=== PATIENT | male | born 1955 | race Caucasian/White ===

== ENCOUNTER 2017-12-10 09:55 | Emergency (ER) | payer OTHER ==
--- NOTE | 2017-12-10 10:19 | EDM.PDOC ---
ED HPI GENERAL MEDICAL PROBLEM - General Chief Complaint: Respiratory Problem Stated Complaint: [id number] UPPER RESP SENT BY DR COLE Time Seen by Provider: 12/10/17 10:18 Source of Information: Reports: Patient, Family (), Old Records, RN, RN Notes Reviewed History Limitations: Reports: No Limitations - History of Present Illness INITIAL COMMENTS - FREE TEXT/NARRATIVE: Arrives from home by POV with c/o 1 weeks duration of shortness of breath and cough. Initial pt states the cough was dry, but has become productive with clear -yellowish sputum, and this morning the sputum was bloody. Denies chest pain, but admits to some chest pressure & burning with cough only. Denies fever or chills. He has 3+ pitting edema to the B/L lower extremities, but states that is chronic, stable and unchanged for years. Denies calf pain. Onset: Gradual Duration: Week(s): (1) Location: Reports: Chest Severity: Severe Improves with: Reports: None Worsens with: Reports: None Associated Symptoms: Reports: No Other Symptoms Abdomen Pain Score (Numeric/FACES): 4 - Related Data Allergies Allergy/AdvReac Type Severity Reaction Status Date / Time atorvastatin calcium Allergy Muscle Verified 12/10/17 10:18 [From Lipitor] Aches cefadroxil hydrate Allergy Diarrhea Verified 12/10/17 10:18 [From Duricef] cerivastatin sodium Allergy Muscle Verified 12/10/17 10:18 [From Baycol] Aches pravastatin sodium Allergy Muscle Verified 12/10/17 10:18 [From Pravachol] Aches calcium containing compounds Allergy Cannot Uncoded 12/10/17 10:18 Remember Home Meds: Home Meds Ezetimibe [Zetia] 10 mg PO DAILY 02/19/14 [History] Folic Acid 2,000 mcg PO DAILY 02/19/14 [History] Levothyroxine Sodium [Synthroid] 75 mcg PO ACBRK 02/19/14 [History] Metoprolol Succinate [Toprol XL] 200 mg PO DAILY 02/19/14 [History] Sildenafil [Viagra] 50 mg PO BID PRN 02/19/14 [History] amLODIPine [Norvasc] 10 mg PO BEDTIME 02/19/14 [History] atorvaSTATin [Lipitor] 20 mg PO BEDTIME 02/19/14 [History] azaTHIOprine [Imuran] 100 mg PO BID 02/19/14 [History] sulfaSALAzine [Sulfazine] 1,500 mg PO TID 02/19/14 [History] Aspirin [Halfprin] 81 mg PO DAILY 08/25/15 [History] metFORMIN [Glucophage XR] 500 mg PO BID 08/25/15 [History] Multivitamin [Daily Multiple Vitamin] 1 tab PO DAILY 09/02/15 [History] Doxycycline [Doxycycline Monohydrate] 100 mg PO BID 12/10/17 [History] Insulin Glarg,Human.Rec.Analog [Lantus Solostar] 28 unit SUBCUT DAILY 12/10/17 [ History] Losartan [Cozaar] 100 mg PO DAILY 12/10/17 [History] Past Medical History HEENT History: Reports: Impaired Vision Cardiovascular History: Reports: High Cholesterol, Hypertension Other Cardiovascular History: HYPERLIPIDEMIA Respiratory History: Reports: None Gastrointestinal History: Reports: Inflammatory Bowel Disease Other Gastrointestinal History: ULCERATIVE COLITIS Musculoskeletal History: Reports: Other (See Below) (chronic peripheral edema) Endocrine/Metabolic History: Reports: Diabetes, Type II, Obesity/BMI 30+ Other Endocrine/Metabolic History: HASHIMOTOTHYROIDITIS Oncologic (Cancer) History: Reports: Malignant Melanoma Other Dermatologic History: DRY SKIN - Past Surgical History Other Male Surgeries/Procedures: CYSTOSCOPY Social & Family History - Family History Family Medical History: Noncontributory - Tobacco Use Smoking Status *Q: Never Smoker - Alcohol Use Days Per Week of Alcohol Use: 1 Number of Drinks Per Day: 2 Total Drinks Per Week: 2 - Recreational Drug Use Recreational Drug Use: No Drug Use in Last 12 Months: No Recreational Drug Type: - Living Situation & Occupation Living situation: Reports: , with Spouse Occupation: Employed ED ROS GENERAL - Review of Systems Review Of Systems: ROS reveals no pertinent complaints other than HPI. ED EXAM, GENERAL - Physical Exam Exam: See Below Exam Limited By: No Limitations General Appearance: Alert, Mild Distress, Obese Eye Exam: Bilateral Eye: Normal Inspection Ears: Normal External Exam, Hearing Grossly Normal Nose: Normal Inspection Throat/Mouth: Normal Lips, Normal Voice, No Airway Compromise Head: Atraumatic, Normocephalic Neck: Normal Inspection, Non-Tender, Full Range of Motion Respiratory/Chest: No Accessory Muscle Use, Chest Non-Tender, Decreased Breath Sounds, Crackles, Rales, Wheezing Cardiovascular: Regular Rate, Rhythm, Tachycardia, Other (3+ pitting edema to B/ L distal thighs, chronic/stable per pt) GI/Abdominal: Normal Bowel Sounds, Soft, Non-Tender, No Distention, Other ( benign morbidly obese abdomen). No: Guarding, Rigid, Rebound (Male) Exam: Deferred Rectal (Males) Exam: Deferred Back Exam: Full Range of Motion, Other (surgical wound left upper back, dressing not removed for exam, no regional tenderness or erythema). No: CVA Tenderness (L), CVA Tenderness (R) Extremities: Normal Range of Motion, Non-Tender, Pedal Edema. No: Joint Swelling, Isac's Sign, Increased Warmth, Redness Neurological: Alert, Oriented, CN II-XII Intact, Normal Cognition, No Motor/ Sensory Deficits Psychiatric: Normal Affect, Normal Mood Skin Exam: Warm, Dry, Normal Color, No Rash EKG INTERPRETATION EKG Date: 12/10/17 Rhythm: Other (1049) Rate (Beats/Min): 79 [place]: Normal P-Wave: Present QRS: Normal ST-T: Other (T-wave inversion multiple leads) QT: Normal Comparison: NA - No Prior EKG Course - Vital Signs Last Recorded V/S: Last Vital Signs Temp 36.3 C 12/10/17 10:19 Pulse 84 12/10/17 10:49 Resp 24 H 12/10/17 10:19 BP 189/88 H 12/10/17 10:19 Pulse Ox 99 12/10/17 10:49 - Orders/Labs/Meds Orders: Active Orders 24 hr Category Date Time Status EKG 12 Lead [EKG Documentation Completion] [RC] STAT Care 12/10/17 10:50 Active Peripheral IV Care [RC] . DIRECTED Care 12/10/17 10:50 Active RT Aerosol Therapy [RC] ASDIRECTED Care 12/10/17 10:49 Active Chest w Cont [CT] Stat Exams 12/10/17 11:33 Taken CULTURE BLOOD [BC] Stat Lab 12/10/17 11:12 Received CULTURE BLOOD [] Stat Lab 12/10/17 11:18 Received CULTURE STREP A CONFIRMATION [] Stat Lab 12/10/17 10:52 Results STREP SCRN A RAPID W CULT CONF [] Stat Lab 12/10/17 10:52 Results Heparin Sodium/D5W [Heparin 25,000 Units in D5W 500 ML] Med 12/10/17 11:30 Active 25,000 units in 500 ml IV TITRATE Sodium Chloride 0.9% [Saline Flush] Med 12/10/17 10:49 Active 10 ml FLUSH ASDIRECTED PRN Blood Culture x2 Reflex Set [OM.PC] Stat Ot 12/10/17 10:51 Ordered Peripheral IV Insertion Adult [OM.PC] Stat Ot 12/10/17 10:50 Ordered Medication Orders Heparin Sodium/Dextrose (Heparin 25,000 Units In D5w 500 Ml) 25,000 units in 500 mls @ 32.659 mls/hr IV TITRATE JUSTIN; 12 UNITS/KG/HR PRN Reason: Protocol Last Admin: 12/10/17 11:29 Dose: 12 units/kg/hr, 32.659 mls/hr Sodium Chloride (Saline Flush) 10 ml FLUSH ASDIRECTED PRN PRN Reason: Keep Vein Open Last Admin: 12/10/17 11:31 Dose: 10 ml Labs: Laboratory Tests 12/10/17 12/10/17 12/10/17 Range/Units 10:20 10:20 11:12 WBC 10.1 H (5.0-10.0) 10^3/uL RBC 4.38 L (4.6-6.2) 10^6/uL Hgb 14.1 (14.0-18.0) g/dL Hct 43.4 (40.0-54.0) % MCV 99.1 (80-100) fL MCH 32.2 (27.0-34.0) pg MCHC 32.5 L (33.0-35.0) g/dL Plt Count 236 (150-450) 10^3/uL Neut % (Auto) 77.6 H (42.2-75.2) % Lymph % (Auto) 11.4 L (20.5-50.1) % [place] % (Auto) 10.2 H (2-8) % Eos % (Auto) 0.6 L (1.0-3.0) % Baso % (Auto) 0.2 (0.0-1.0) % Sodium 129 L (135-145) mmol/L Potassium 4.6 (3.6-5.0) mmol/L Chloride 90 L (101-111) mmol/L Carbon Dioxide 31.0 (21.0-31.0) mmol/L Anion Gap 12.6 BUN 15 (7-18) mg/dL Creatinine 1.0 (0.6-1.3) mg/dL Est Cr Clr Drug Dosing 73.15 mL/min Estimated GFR (MDRD) > 60 BUN/Creatinine Ratio 15.00 Glucose 193 H (74-105) mg/dL Lactic Acid 1.5 (0.5-2.2) mmol/L Calcium 8.9 (8.4-10.2) mg/dl Total Bilirubin 1.0 (0.2-1.0) mg/dL AST 31 (10-42) IU/L ALT 30 (10-60) IU/L Alkaline Phosphatase 45 (42-121) IU/L Troponin I 0.78 H* (0.00-0.02) ng/ml B-Natriuretic Peptide 178 H (0-100) pg/ml Total Protein 5.7 L (6.7-8.2) g/dl Albumin 3.6 (3.2-5.5) g/dl Globulin 2.1 Albumin/Globulin Ratio 1.71 Urine Color (YELLOW) Urine Appearance (CLEAR) Urine pH (5.0-9.0) Ur Specific [place] (1.005-1.030) Urine Protein (NEGATIVE) Urine Glucose (UA) (NEGATIVE) Urine Ketones (NEGATIVE) Urine Occult Blood (NEGATIVE) Urine Nitrite (NEGATIVE) Urine Bilirubin (NEGATIVE) Urine Urobilinogen (0.2-1.0) mg/dL Ur Leukocyte Esterase (NEGATIVE) Urine RBC /HPF Urine WBC (0-5/HPF) /HPF Ur Epithelial Cells /HPF Urine Bacteria (0-FEW/HPF) /HPF 12/10/17 Range/Units 11:25 WBC (5.0-10.0) 10^3/uL RBC (4.6-6.2) 10^6/uL Hgb (14.0-18.0) g/dL Hct (40.0-54.0) % MCV (80-100) fL MCH (27.0-34.0) pg MCHC (33.0-35.0) g/dL Plt Count (150-450) 10^3/uL Neut % (Auto) (42.2-75.2) % Lymph % (Auto) (20.5-50.1) % [place] % (Auto) (2-8) % Eos % (Auto) (1.0-3.0) % Baso % (Auto) (0.0-1.0) % Sodium (135-145) mmol/L Potassium (3.6-5.0) mmol/L Chloride (101-111) mmol/L Carbon Dioxide (21.0-31.0) mmol/L Anion Gap BUN (7-18) mg/dL Creatinine (0.6-1.3) mg/dL Est Cr Clr Drug Dosing mL/min Estimated GFR (MDRD) BUN/Creatinine Ratio Glucose (74-105) mg/dL Lactic Acid (0.5-2.2) mmol/L Calcium (8.4-10.2) mg/dl Total Bilirubin (0.2-1.0) mg/dL AST (10-42) IU/L ALT (10-60) IU/L Alkaline Phosphatase (42-121) IU/L Troponin I (0.00-0.02) ng/ml B-Natriuretic Peptide (0-100) pg/ml Total Protein (6.7-8.2) g/dl Albumin (3.2-5.5) g/dl Globulin Albumin/Globulin Ratio Urine Color Yellow (YELLOW) Urine Appearance Clear (CLEAR) Urine pH 6.5 (5.0-9.0) Ur Specific [place] 1.015 (1.005-1.030) Urine Protein 100 H (NEGATIVE) Urine Glucose (UA) Negative (NEGATIVE) Urine Ketones Negative (NEGATIVE) Urine Occult Blood Trace-lysed H (NEGATIVE) Urine Nitrite Negative (NEGATIVE) Urine Bilirubin Negative (NEGATIVE) Urine Urobilinogen 0.2 (0.2-1.0) mg/dL Ur Leukocyte Esterase Negative (NEGATIVE) Urine RBC 0-5 /HPF Urine WBC 0-5 (0-5/HPF) /HPF Ur Epithelial Cells Rare /HPF Urine Bacteria Rare (0-FEW/HPF) /HPF Influenza A/B: negative Rapid strep: negative Meds: Medications Generic Name Dose Route Start Last Admin Trade Name Freq PRN Reason Stop Dose Admin Heparin Sodium/Dextrose 25,000 units in 500 mls @ 32.659 mls/hr 12/10/17 11: 30 12/10/17 11:29 Heparin 25,000 Units In D5w 500 Ml IV 12 units/kg/hr TITRATE JUSTIN 32.659 mls/hr Protocol Administration 12 UNITS/KG/HR Sodium Chloride 10 ml 12/10/17 10:49 12/10/17 11:31 Saline Flush FLUSH 10 ml ASDIRECTED PRN Administration Keep Vein Open Discontinued Medications Generic Name Dose Route Start Last Admin Trade Name Freq PRN Reason Stop Dose Admin Albuterol/Ipratropium 3 ml 12/10/17 10:49 12/10/17 11:00 Duoneb 3.0-0.5 Mg/3 Ml NEB 12/10/17 10:50 3 ml ONETIME ONE Administration Aspirin 324 mg 12/10/17 11:16 12/10/17 11:28 Aspirin PO 12/10/17 11:17 324 mg ONETIME ONE Administration Heparin Sodium (Porcine) Confirm 12/10/17 11:21 12/10/17 11:29 Heparin Sodium Administered 12/10/17 11:22 4,000 units Dose Administration 5,000 units .ROUTE .STK-MED ONE Heparin Sodium/Dextrose Confirm 12/10/17 11:21 12/10/17 11:31 Heparin 25,000 Units In D5w 500 Ml Administered 12/10/17 11:22 Not Given Dose 500 mls @ as directed .ROUTE .STK-MED ONE Iopamidol 100 ml 12/10/17 11:32 12/10/17 12:12 Isovue-370 (76%) IVPUSH 12/10/17 11:33 83 ml ONETIME ONE Administration - Radiology Interpretation Free Text/Narrative:: AP CXR: poor insp. effort, obese body habitus, no acute process per Rad. report. CT Chest PE study: probable RLL pulmonary infarct and suspicious for PE, but study impair by movement/resp. motion per Rad. report. Departure - Departure Time of Disposition: 12:28 Disposition: DC/Tfer to Acute Hospital 02 Condition: Serious Clinical Impression: Pulmonary embolism and infarction, Non-ST elevated myocardial infarction (non- STEMI) - Discharge Information Forms: ED Department Discharge, Interfacility Transfer EMTALA - My Orders Last 24 Hours: My Active Orders 12/10/17 10:49 RT Aerosol Therapy [RC] ASDIRECTED Sodium Chloride 0.9% [Saline Flush] 10 ml FLUSH ASDIRECTED PRN 12/10/17 10:50 EKG 12 Lead [EKG Documentation Completion] [RC] STAT Peripheral IV Care [RC] . DIRECTED Peripheral IV Insertion Adult [OM.PC] Stat 12/10/17 10:51 Blood Culture x2 Reflex Set [OM.PC] Stat 12/10/17 10:52 CULTURE STREP A CONFIRMATION [RM] Stat STREP SCRN A RAPID W CULT CONF [RM] Stat 12/10/17 11:12 CULTURE BLOOD [BC] Stat 12/10/17 11:18 CULTURE BLOOD [BC] Stat 12/10/17 11:30 Heparin Sodium/D5W [Heparin 25,000 Units in D5W 500 ML] 25,000 units in 500 ml IV TITRATE 12/10/17 11:33 Chest w Cont [CT] Stat - Assessment/Plan Last 24 Hours: My Active Orders 12/10/17 10:49 RT Aerosol Therapy [RC] ASDIRECTED Sodium Chloride 0.9% [Saline Flush] 10 ml FLUSH ASDIRECTED PRN 12/10/17 10:50 EKG 12 Lead [EKG Documentation Completion] [RC] STAT Peripheral IV Care [RC] . DIRECTED Peripheral IV Insertion Adult [OM.PC] Stat 12/10/17 10:51 Blood Culture x2 Reflex Set [OM.PC] Stat 12/10/17 10:52 CULTURE STREP A CONFIRMATION [RM] Stat STREP SCRN A RAPID W CULT CONF [RM] Stat 12/10/17 11:12 CULTURE BLOOD [BC] Stat 12/10/17 11:18 CULTURE BLOOD [BC] Stat 12/10/17 11:30 Heparin Sodium/D5W [Heparin 25,000 Units in D5W 500 ML] 25,000 units in 500 ml IV TITRATE 12/10/17 11:33 Chest w Cont [CT] Stat
[2017-12-10 10:31] VITALS: BP 189/88
[2017-12-10] MEDS ORDERED: Sodium Chloride 0.9% 10 ML Syringe FLUSH PRN (10:49)
[2017-12-10] MEDS ORDERED: Albuterol/Ipratropium 3.0-0.5 MG/3 ML Neb Soln NEB ONE (10:49)
[2017-12-10 11:12] LABS: CHLORIDE,CL 90 mmol/L (101-111); SODIUM,NA 129 mmol/L (135-145)
[2017-12-10] MEDS ORDERED: Aspirin 81 MG Tab.Chew PO ONE (11:16)
[2017-12-10] MEDS ORDERED: Heparin Sodium 5,000 Units/ML Vial ONE (11:21)
[2017-12-10] MEDS ORDERED: Heparin Sodium/D5W 500 ML ONE (11:21)
[2017-12-10] MEDS ORDERED: Heparin Sodium/D5W 25,000 UNITS/500 ML BAG IV SCH (11:30)
[2017-12-10] MEDS ORDERED: Iopamidol 755 Mg/ML 100 ML Bottle IVPUSH ONE (11:32)
--- NOTE | 2017-12-10 11:33 | CR ---
Clinical history: 62-year-old male chest pain, productive cough, dyspnea, 3+ edema and abnormally bala vated serum troponin. Interpretation: Upright AP portable chest film unremarkable except for less than optimal inspiratory effort this morbidly obese male. Cardiac silhouette prominent but unchanged since scanogram CT 14 July 2015. No cephalization of vascular flow, signs of alveolar edema or dependent pleural fluid accumulation. No new lung mass, focal lobar pneumonia or atelectasis/collapse. No pneumothorax.
--- NOTE | 2017-12-10 12:26 | CT ---
Clinical history: 62-year-old hypertensive 300 pound (plus) diabetic male with chest pain, dyspnea, h emoptysis and abnormally elevated serum troponin whose AP chest film was unremarkable and serum WBC n ormal. Rule out pulmonary embolism or infarct. Scan technique: Volume acquisition of data from the chest (bony thorax, lungs and mediastinum) obtain ed during the intravenous administration 83 mL nonionic Isovue 370 contrast through an 18-gauge IV ne edle at 5 cc/s via injector while patient was lying supine on the Siemens multi slice CT scanner [place], [place]. All data archived in the PACS system for storage, reform atting axial/sagittal/coronal planes and study (lung/mediastinal windows). Respiratory motion artifac t. Interpretation: Abnormal. 1. *Dense alveolar pneumonic like consolidation with distinct air bronchograms involving posterior-la teral segment, RLL. 2. No definite intraluminal filling defect or thrombus identified in the pulmonary artery circulation and no focal lobar oligemia, peripheral pleural-based wedge shaped infarcts or associated ipsilatera l dependent pleural effusion i.e. no clear diagnostic evidence of pulmonary embolism or infarct. (Exa m technically compromised by patient respiratory motion during exam) 3. Normal cardiac silhouette. No pericardial effusion, signs of alveolar edema or dependent pleural e ffusion. 4. No other, upper lung or LLL consolidation and no sign of lung mass lesion or hilar/mediastinal lym phadenopathy. 5. Normal caliber thoracic aorta. 6. Chronic multilevel thoracic disc disease and hypertrophic arthritic changes of the spine.
--- NOTE | 2017-12-12 10:30 | EKG ---
12/10/2017- OLEKSANDR RD KYLE - EKG, per my reading, shows sinus rhythm with diffuse T-wave inversion. [facility] /[id number]
== END 2017-12-10 12:33 ==
LOC: DL.ED 09:55
DX: I26.99 Other pulmonary embolism without acute cor pulmonale (principal); I21.4 Non-ST elevation (NSTEMI) myocardial infarction; E78.00 Pure hypercholesterolemia, unspecified; I10 Essential (primary) hypertension; E78.5 Hyperlipidemia, unspecified; E11.9 Type 2 diabetes mellitus without complications; Z88.8 Allergy status to other drugs, medicaments and biological substances; Z79.899 Other long term (current) drug therapy; Z79.82 Long term (current) use of aspirin; Z79.4 Long term (current) use of insulin
CPT/HCPCS: 36415; 71045; 71260; 80053; 81001; 83605; 83880; 84484; 85025; 87040; 87081; 87430; 87804; 93005; 94640; 96365; 96376; 99285; A9270; J1644; J7050; Q9967

== ENCOUNTER 2020-08-20 06:56 | Day surgery (SDC) | payer OTHER ==
[~2020-08-20 06:56] MED LIST: Dextrose 5%-0.45% NaCl 1,000 ML IV SCH; Midazolam 1 MG/ML 2 ML SDV ONE; Sodium Chloride 0.9% 10 ML Syringe FLUSH PRN; fentaNYL 100 MCG/2 ML SDV ONE
[2020-08-20] MEDS ORDERED: fentaNYL 100 MCG/2 ML SDV IV ONE ×3 (06:57→07:53)
[2020-08-20] MEDS ORDERED: Midazolam 1 MG/ML 2 ML SDV IV ONE ×7 (06:57→08:03)
[2020-08-20 11:16] VITALS: BP 157/89; PULSE 62
--- NOTE | 2020-08-20 15:06 | OR ---
DATE: 08/20/2020 PROCEDURE: Total colonoscopy and multiple pinch biopsies. INSTRUMENT USED: [id number] Olympus video colonoscope. PREMEDICATIONS: Fentanyl 100 mcg intravenous, Versed 4 mg intravenous. Nasal O2 cannula. The procedure was done under pulse oximetry, BP recording, and athletic monitor. INDICATION: The patient with longstanding ulcerative colitis, on therapy. Surveillance colonoscopic examination is done for detection of any polypoid lesions and removal, biopsies to be obtained for any evidence of dysplasia, endoscopic hemostasis therapy if needed. DESCRIPTION OF PROCEDURE: Initial rectal exam was unremarkable. Rigid anoscopy was normal. The colonoscope was passed with ease up to the ileocecal area. Photographs were taken of the normal-appearing cecum, identified by landmarks of appendiceal orifice and double-bulged ileocecal folds. No bleeding was noted from any of the visualized areas at the commencement of the examination. The bowel preparation was found to be adequate. [place] scale 3 in all the regions, total score 9. No stricture, no vascular ectasia, no large isolated ulcerations seen. Four-quadrant biopsies were taken at 10 cm distance apart from the normal- appearing mucosa, and the tissues obtained were pooled into bags; 1 cecum and ascending colon, bag 2 transverse colon, and bag 3 descending colon. Mild diffuse erythema was noted in the rectosigmoid areas. Again, 4-quadrant biopsies were taken at 10 cm distance apart and the tissues were placed in bag #4 from sigmoid and #5 from rectum. No bleeding was noted from any of the visualized areas at the completion of examination. IMPRESSION: Ulcerative colitis. The patient tolerated the procedure well. [facility] /[id number]
== END 2020-08-20 10:20 | disposition home or self-care (01) ==
LOC: DL.ENDO 06:56
PROVIDERS: ATTEND Internal Medicine Gastroenterology
DX: K51.90 Ulcerative colitis, unspecified, without complications (principal); K63.89 Other specified diseases of intestine; K62.89 Other specified diseases of anus and rectum; E66.09 Other obesity due to excess calories; I10 Essential (primary) hypertension; E11.9 Type 2 diabetes mellitus without complications; E03.9 Hypothyroidism, unspecified; E78.5 Hyperlipidemia, unspecified; Z68.41 Body mass index [BMI] 40.0-44.9, adult
CPT/HCPCS: 45380; J2250; J3010; J7042

== ENCOUNTER 2023-07-20 05:25 | Day surgery (SDC) | payer OTHER ==
[2023-07-20] MEDS ORDERED: Dextrose 5%-0.45% NaCl 1,000 ML IV SCH (05:30)
[2023-07-20] MEDS ORDERED: Midazolam 1 MG/ML 2 ML SDV ONE (06:10)
[2023-07-20] MEDS ORDERED: fentaNYL 100 MCG/2 ML SDV ONE (06:10)
[2023-07-20] MEDS ORDERED: fentaNYL 100 MCG/2 ML SDV IV ONE ×2 (06:31)
[2023-07-20] MEDS ORDERED: Midazolam 1 MG/ML 2 ML SDV IV ONE ×4 (06:32→06:38)
[2023-07-20 08:31] VITALS: BP 123/53; PULSE 64
== END 2023-07-20 08:40 | disposition home or self-care (01) ==
LOC: DL.ENDO 05:25
PROVIDERS: ATTEND Internal Medicine Gastroenterology
DX: D12.3 Benign neoplasm of transverse colon (principal); K51.90 Ulcerative colitis, unspecified, without complications; K64.8 Other hemorrhoids; K52.9 Noninfective gastroenteritis and colitis, unspecified; Z23 Encounter for immunization; E11.65 Type 2 diabetes mellitus with hyperglycemia; E11.22 Type 2 diabetes mellitus with diabetic chronic kidney disease; I12.9 Hypertensive chronic kidney disease with stage 1 through stage 4 chronic kidney disease, or unspecified chronic kidney disease; N18.9 Chronic kidney disease, unspecified; E66.01 Morbid (severe) obesity due to excess calories; Z68.42 Body mass index [BMI] 45.0-49.9, adult; E78.5 Hyperlipidemia, unspecified; Z79.4 Long term (current) use of insulin; Z79.899 Other long term (current) drug therapy
CPT/HCPCS: J2250; J3010; J7042

== ENCOUNTER 2024-05-14 10:15 | Emergency (ER) | payer OTHER ==
[2024-05-14 10:49] LABS: BASOPHILS PERCENT AUTO 0.6 % (0.0-1.0); EOSINOPHILS PERCENT AUTO 0.6 % (1.0-3.0); LYMPHOCYTES PERCENT AUTO 45.6 % (20.5-50.1); MEAN CORPUSCULAR HEMOGLOBIN 36.9 pg (27.0-34.0); MEAN CORPUSCULAR VOLUME 115.1 fL (80-100); MONOCYTES PERCENT AUTO 10.8 % (2-8); NEUTROPHILS PERCENT AUTO 42.4 % (42.2-75.2); PLATELET COUNT,PLT 288 10^3/uL (150-450); RED BLOOD CELL COUNT 1.79 10^6/uL (4.6-6.2); WHITE BLOOD CELL COUNT,WBC 1.6 10^3/uL (5.0-10.0)
[2024-05-14 10:54] LABS: HEMATOCRIT 20.6 % (40.0-54.0); HEMOGLOBIN 6.6 g/dL (14.0-18.0)
[2024-05-14 10:59] LABS: A/G RATIO 1.2; ALBUMIN 4.1 g/dL (3.4-5.0); ANION GAP 16.2 mEq/L (7-13); BILIRUBIN TOTAL 0.7 mg/dL (0.2-1.0); CALCIUM 9.3 mg/dL (8.5-10.1); CREATININE 2.03 mg/dL (0.70-1.30); EST CRCL DRUG DOSING (CG) 33.23 mL/min; POTASSIUM,K 4.2 mmol/L (3.5-5.1); PROTEIN TOTAL,TP 7.4 g/dL (6.4-8.2)
[2024-05-14 11:01] LABS: PERCENT FE SATURATION 93.2 % (20.0-50.0)
[2024-05-14 11:02] LABS: INR 1.1 (0.9-1.2); PROTHROMBIN TIME 11.1 SEC (9.0-12.0); PTT,PARTIAL THROMBOPLSTIN TIME 23.7 SEC (22.0-34.0)
[2024-05-14] MEDS: Sodium Chloride 0.9% 1,000 ML IV ONE (11:29)
[2024-05-14 11:58] LABS: RETICULOCYTE COUNT PERCENT 1 % (0.5-1.5)
[2024-05-14 12:57] LABS: FOLIC ACID > 20.0 ng/mL (8.6-58.9)
[2024-05-14 15:30] VITALS: PULSE 74
[2024-05-14 15:35] VITALS: BP 134/55
== END 2024-05-14 15:58 ==
LOC: DL.ED 10:15
DX: D64.9 Anemia, unspecified (principal); D72.819 Decreased white blood cell count, unspecified; I10 Essential (primary) hypertension; E78.00 Pure hypercholesterolemia, unspecified; E11.9 Type 2 diabetes mellitus without complications; E03.9 Hypothyroidism, unspecified; Z79.899 Other long term (current) drug therapy; Z88.8 Allergy status to other drugs, medicaments and biological substances
CPT/HCPCS: 36415; 36430; 80053; 82272; 82607; 82746; 83540; 83550; 83615; 83690; 84484; 85025; 85045; 85610; 85730; 86850; 86900; 86901; 86920; 86922; 93005; 96360; 99285-25; J7030; P9016

== ENCOUNTER 2024-06-12 05:52 | Day surgery (SDC) | payer OTHER ==
[2024-06-12] MEDS ORDERED: Midazolam 1 MG/ML 2 ML SDV IV ONE (05:53)
[2024-06-12] MEDS ORDERED: fentaNYL 100 MCG/2 ML SDV IV ONE (05:53)
[2024-06-12] MEDS ORDERED: Midazolam 1 MG/ML 2 ML SDV ONE (06:14)
[2024-06-12] MEDS ORDERED: fentaNYL 100 MCG/2 ML SDV ONE (06:14)
[2024-06-12] MEDS: Dextrose 5%-0.45% NaCl 1,000 ML IV SCH (06:16)
[2024-06-12] MEDS: fentaNYL 100 MCG/2 ML SDV IV ONE ×2 (07:30)
[2024-06-12] MEDS: Midazolam 1 MG/ML 2 ML SDV IV ONE ×2 (07:31)
[2024-06-12 08:36] VITALS: BP 134/52; PULSE 62
== END 2024-06-12 08:50 | disposition home or self-care (01) ==
LOC: DL.ENDO 05:52
PROVIDERS: ATTEND Internal Medicine Gastroenterology
DX: D64.9 Anemia, unspecified (principal); K51.90 Ulcerative colitis, unspecified, without complications; D47.9 Neoplasm of uncertain behavior of lymphoid, hematopoietic and related tissue, unspecified; E11.9 Type 2 diabetes mellitus without complications; I10 Essential (primary) hypertension; E78.5 Hyperlipidemia, unspecified; E66.09 Other obesity due to excess calories; Z68.41 Body mass index [BMI] 40.0-44.9, adult
CPT/HCPCS: 87077; J2250; J3010; J7799

== ENCOUNTER 2024-06-19 05:25 | Day surgery (SDC) | payer OTHER ==
[2024-06-19] MEDS: Dextrose 5%-0.45% NaCl 1,000 ML IV SCH (05:43)
[2024-06-19] MEDS ORDERED: fentaNYL 100 MCG/2 ML SDV IV ONE (06:36)
[2024-06-19] MEDS ORDERED: Midazolam 1 MG/ML 2 ML SDV IV ONE (06:36)
[2024-06-19] MEDS ORDERED: fentaNYL 100 MCG/2 ML SDV ONE (06:36)
[2024-06-19] MEDS ORDERED: Midazolam 1 MG/ML 2 ML SDV ONE (06:36)
[2024-06-19] MEDS: fentaNYL 100 MCG/2 ML SDV IV ONE ×2 (06:52)
[2024-06-19] MEDS: Midazolam 1 MG/ML 2 ML SDV IV ONE ×6 (06:53→07:06)
[2024-06-19 08:36] VITALS: BP 148/55; PULSE 66
== END 2024-06-19 08:34 | disposition home or self-care (01) ==
LOC: DL.ENDO 05:25
PROVIDERS: ATTEND Internal Medicine Gastroenterology
DX: K63.5 Polyp of colon (principal); K51.90 Ulcerative colitis, unspecified, without complications; K64.8 Other hemorrhoids; E11.9 Type 2 diabetes mellitus without complications; I10 Essential (primary) hypertension; E78.5 Hyperlipidemia, unspecified; E06.3 Autoimmune thyroiditis; E66.09 Other obesity due to excess calories; Z68.41 Body mass index [BMI] 40.0-44.9, adult; D64.9 Anemia, unspecified; D47.9 Neoplasm of uncertain behavior of lymphoid, hematopoietic and related tissue, unspecified; C43.9 Malignant melanoma of skin, unspecified
CPT/HCPCS: J2250; J3010; J7799

== ENCOUNTER 2024-09-08 11:11 | Inpatient (IN) | payer OTHER ==
[2024-09-08 12:27] LABS: BASOPHILS PERCENT AUTO 0.4 % (0.0-1.0); EOSINOPHILS PERCENT AUTO 0.8 % (1.0-3.0); HEMATOCRIT 30.7 % (40.0-54.0); HEMOGLOBIN 9.7 g/dL (14.0-18.0); LYMPHOCYTES PERCENT AUTO 1.4 % (20.5-50.1); MEAN CORPUSCULAR HEMOGLOBIN 33.6 pg (27.0-34.0); MEAN CORPUSCULAR HGB CONC 31.6 g/dL (33.0-35.0); MEAN CORPUSCULAR VOLUME 106.2 fL (80-100); MONOCYTES PERCENT AUTO 11.5 % (2-8); NEUTROPHILS PERCENT AUTO 85.9 % (42.2-75.2); PLATELET COUNT,PLT 205 10^3/uL (150-450); RED BLOOD CELL COUNT 2.89 10^6/uL (4.6-6.2); WHITE BLOOD CELL COUNT,WBC 7.9 10^3/uL (5.0-10.0)
[2024-09-08 12:50] LABS: ALBUMIN 2.7 g/dL (3.4-5.0); ANION GAP 14.8 mEq/L (7-13); BILIRUBIN TOTAL 0.6 mg/dL (0.2-1.0); BUN/CREATININE RATIO 26.6 (No establ ref range); CALCIUM 8.5 mg/dL (8.5-10.1); CREATININE 2.03 mg/dL (0.70-1.30); EST CRCL DRUG DOSING (CG) 32.76 mL/min; MAGNESIUM 1.6 mg/dL (1.8-2.4); POTASSIUM,K 3.8 mmol/L (3.5-5.1); PROTEIN TOTAL,TP 6.9 g/dL (6.4-8.2)
[2024-09-08 12:51] LABS: A/G RATIO 0.64; LACTIC ACID 1.6 mmol/L (0.4-2.0)
[2024-09-08 12:57] LABS: APPEARANCE,URINE CLEAR (CLEAR); BILIRUBIN,URINE SMALL (NEGATIVE); COLOR,URINE DARK YELLOW (YELLOW); GLUCOSE,URINE NEGATIVE (NEGATIVE); KETONES,URINE NEGATIVE (NEGATIVE); LEUKOCYTE ESTERASE,URINE NEGATIVE (NEGATIVE); NITRITE,URINE NEGATIVE (NEGATIVE); OCCULT BLOOD,URINE NEGATIVE (NEGATIVE); PH,URINE 5.5 (5.0-9.0); PROTEIN,URINE TRACE (NEGATIVE); UROBILINOGEN,URINE 0.2 mg/dL (0.2-1.0)
[2024-09-08 13:04] LABS: AMORPHOUS SEDIMENT,URINE RARE /HPF (NOT SEEN); BACTERIA,URINE RARE /HPF (0-FEW/HPF); EPITHELIAL CELLS,URINE RARE /HPF (NOT SEEN); MUCUS,URINE FEW /LPF (NOT SEEN); RBC,URINE 0-5 /HPF (0-5); WBC,URINE 0-5 /HPF (0-5/HPF)
[2024-09-08] MEDS: Magnesium Sulfate/Water Premix 2 GM in Premix Bag 1 BAG IV ONE (13:05)
[2024-09-08] MEDS ORDERED: hydrALAZINE 20 MG/ML SDV IVPUSH PRN (14:03)
[2024-09-08] MEDS ORDERED: Naloxone 2 MG/2 ML Syringe IVPUSH PRN (14:04)
[2024-09-08] MEDS ORDERED: Bisacodyl 5 MG Tab PO PRN (14:04)
[2024-09-08] MEDS ORDERED: Ondansetron 4 MG/2 ML SDV IVPUSH PRN (14:04)
[2024-09-08] MEDS ORDERED: HYDROmorphone 0.5 MG/0.5 ML Syringe IVPUSH PRN (14:04)
[2024-09-08] MEDS ORDERED: Polyethylene Glycol 3350 Powder 17 GM Packet PO PRN (14:04)
[2024-09-08] MEDS ORDERED: Acetaminophen/oxyCODONE 325-5 MG Tab PO PRN (14:04)
[2024-09-08] MEDS ORDERED: Acetaminophen 325 MG Tab PO PRN (14:04)
[2024-09-08] MEDS: Azithromycin 500 MG in Sodium Chloride 0.9% 250 ML IV ONE (14:07)
[2024-09-08] MEDS: Furosemide 40 MG/4 ML VIAL IVPUSH ONE (14:07)
[2024-09-08] MEDS ORDERED: Glucagon,Human Recombinant 1 MG Vial IM PRN ×2 (14:11→20:34)
[2024-09-08] MEDS ORDERED: 50% Dextrose in Water 50 ML Syringe IVPUSH PRN ×2 (14:11→20:34)
[2024-09-08 14:33] LABS: C-REACTIVE PROTEIN 14.9 ng/dL (<=0.50); T4 FREE 1.46 ng/dL (0.76-1.46); TSH ULTRASENSITIVE 6.46 uIU/mL (0.36-3.74)
[2024-09-08] MEDS: Azithromycin 500 MG Vial ONE (15:27)
[2024-09-08] MEDS: Ampicillin/Sulbactam Na 1.5 GM in Sodium Chloride 0.9% 100 ML IV ONE (15:34)
[2024-09-08] MEDS: Dexamethasone 4 MG/ML SDV IVPUSH ONE (15:34)
[2024-09-08] MEDS: Pantoprazole 40 MG Vial IVPUSH ONE (15:34)
[2024-09-08] MEDS: Insulin Lispro 100 Units/ML 3 ML Vial SUBCUT SCH (18:09)
[2024-09-08] MEDS: Heparin Sodium 5,000 Units/ML Vial SUBCUT SCH (18:09)
[2024-09-08] MEDS ORDERED: Metoclopramide 10 MG/2 ML SDV IV PRN (20:05)
[2024-09-08] MEDS ORDERED: LORazepam 1 MG Tab PO PRN (20:35)
[2024-09-08] MEDS ORDERED: FEBUXOSTAT 80 MG PO SCH (20:45)
[2024-09-08] MEDS: guaiFENesin 600 MG Tab.ER PO SCH (20:59)
[2024-09-08] MEDS: Saccharomyces Boulardii (Probiotic) 250 MG Cap PO SCH (21:00)
[2024-09-08] MEDS: Non-Formulary Medication 1 Each (Insulin Glargine,Hum.Rec.Anlog 100 UNIT/ML Insuln.Pen) SQ SCH (21:41)
[2024-09-08] MEDS: Insulin Glarg,Human.Rec.Analog 100 Unit/ML 10 ML Vial SUBCUT SCH (21:46)
[2024-09-09] MEDS: Pantoprazole 40 MG Tab.CR PO SCH (05:31)
[2024-09-09 05:56] LABS: BASOPHILS PERCENT AUTO 0.3 % (0.0-1.0); EOSINOPHILS PERCENT AUTO 0.8 % (1.0-3.0); HEMATOCRIT 30.5 % (40.0-54.0); HEMOGLOBIN 9.7 g/dL (14.0-18.0); LYMPHOCYTES PERCENT AUTO 4.6 % (20.5-50.1); MEAN CORPUSCULAR HEMOGLOBIN 33.7 pg (27.0-34.0); MEAN CORPUSCULAR HGB CONC 31.8 g/dL (33.0-35.0); MEAN CORPUSCULAR VOLUME 105.9 fL (80-100); MONOCYTES PERCENT AUTO 11.3 % (2-8); PLATELET COUNT,PLT 205 10^3/uL (150-450); RED BLOOD CELL COUNT 2.88 10^6/uL (4.6-6.2); WHITE BLOOD CELL COUNT,WBC 6.1 10^3/uL (5.0-10.0)
[2024-09-09 06:24] LABS: ALBUMIN 2.6 g/dL (3.4-5.0); ANION GAP 12.8 mEq/L (7-13); BILIRUBIN TOTAL 0.5 mg/dL (0.2-1.0); BUN/CREATININE RATIO 28.9 (No establ ref range); C-REACTIVE PROTEIN 12.24 ng/dL (<=0.50); CALCIUM 8.6 mg/dL (8.5-10.1); CREATININE 1.66 mg/dL (0.70-1.30); EST CRCL DRUG DOSING (CG) 39.39 mL/min; POTASSIUM,K 3.8 mmol/L (3.5-5.1); PROTEIN TOTAL,TP 6.8 g/dL (6.4-8.2)
[2024-09-09 06:26] LABS: A/G RATIO 0.62
[2024-09-09] MEDS: Insulin Lispro 100 Units/ML 3 ML Vial SUBCUT SCH (08:45)
[2024-09-09] MEDS: Aspirin 81 MG Tab.Chew PO SCH (08:48)
[2024-09-09] MEDS ORDERED: Nystatin Topical Powder 60 GM Bottle TOP PRN (09:12)
[2024-09-09] MEDS ORDERED: Prochlorperazine 5 MG Tab PO PRN (09:13)
[2024-09-09] MEDS: Albuterol/Ipratropium 3.0-0.5 MG/3 ML Neb Soln NEB PRN (09:27)
[2024-09-09] MEDS: Magnesium Hydroxide 400 MG/5 ML Susp 30 ML Cup PO PRN (09:56)
[2024-09-09] MEDS: Metoprolol Succinate 50 MG Tab.ER PO SCH (12:05)
[2024-09-09] MEDS: Ezetimibe 10 MG Tab PO SCH (12:35)
[2024-09-09] MEDS: Cyanocobalamin (Vitamin B12) 1,000 MCG Tab PO SCH (12:35)
[2024-09-09] MEDS: Folic Acid 1 MG Tab PO SCH (12:35)
[2024-09-09] MEDS: amLODIPine 5 MG Tab PO SCH (12:35)
[2024-09-09] MEDS: Losartan 50 MG Tab PO SCH (12:35)
[2024-09-09] MEDS: Metolazone 2.5 MG Tab PO SCH (12:36)
[2024-09-09] MEDS: Allopurinol 100 MG Tab PO SCH (12:36)
[2024-09-09] MEDS: Aspirin 81 MG Tab.EC PO SCH (12:37)
[2024-09-09] MEDS: hydrALAZINE 25 MG Tab PO SCH (13:21)
[2024-09-09] MEDS: sulfaSALAzine 500 MG Tab PO SCH (13:22)
[2024-09-09] MEDS: Azithromycin 500 MG in Sodium Chloride 0.9% 250 ML IV SCH (14:29)
[2024-09-09] MEDS: Ampicillin/Sulbactam Na 3 GM in Sodium Chloride 0.9% 100 ML IV SCH (14:30)
[2024-09-09] MEDS: metFORMIN 500 MG Tab PO SCH (17:34)
[2024-09-09] MEDS: Multivitamin Tab PO SCH (20:34)
[2024-09-09] MEDS: atorvaSTATin 20 MG Tab PO SCH (20:34)
[2024-09-09] MEDS: Melatonin 3 MG Tab PO PRN (22:15)
[2024-09-10] MEDS: Levothyroxine 88 MCG Tab PO SCH (05:49)
[2024-09-10 06:13] LABS: BASOPHILS PERCENT AUTO 0.3 % (0.0-1.0); EOSINOPHILS PERCENT AUTO 2.2 % (1.0-3.0); HEMATOCRIT 30.6 % (40.0-54.0); HEMOGLOBIN 9.5 g/dL (14.0-18.0); LYMPHOCYTES PERCENT AUTO 2.7 % (20.5-50.1); MEAN CORPUSCULAR HEMOGLOBIN 33.6 pg (27.0-34.0); MEAN CORPUSCULAR VOLUME 108.1 fL (80-100); MONOCYTES PERCENT AUTO 14.8 % (2-8); PLATELET COUNT,PLT 195 10^3/uL (150-450); RED BLOOD CELL COUNT 2.83 10^6/uL (4.6-6.2)
[2024-09-10 06:43] LABS: A/G RATIO 0.61; ALBUMIN 2.5 g/dL (3.4-5.0); ANION GAP 8.4 mEq/L (7-13); BILIRUBIN TOTAL 0.5 mg/dL (0.2-1.0); BUN/CREATININE RATIO 27.7 (No establ ref range); C-REACTIVE PROTEIN 8.68 ng/dL (<=0.50); CALCIUM 8.7 mg/dL (8.5-10.1); CREATININE 1.48 mg/dL (0.70-1.30); EST CRCL DRUG DOSING (CG) 44.18 mL/min; MAGNESIUM 2.2 mg/dL (1.8-2.4); POTASSIUM,K 4.4 mmol/L (3.5-5.1); PROTEIN TOTAL,TP 6.6 g/dL (6.4-8.2)
[2024-09-10 08:46] LABS: FOLIC ACID > 20.0 ng/mL (8.6-58.9)
[2024-09-10] MEDS: Iopamidol 755 Mg/ML 100 ML Bottle IVPUSH ONE (15:30)
[2024-09-10] MEDS: Albuterol/Ipratropium 3.0-0.5 MG/3 ML Neb Soln NEB SCH (18:25)
[2024-09-10] MEDS: methylPREDNISolone Sodium Succinate 40 MG/1 ML SDV IVPUSH SCH (19:59)
[2024-09-10] MEDS: Furosemide 40 MG/4 ML VIAL IVPUSH ONE (21:34)
[2024-09-11] MEDS: methylPREDNISolone Sodium Succinate 40 MG/1 ML SDV IVPUSH SCH (04:21)
[2024-09-11] MEDS: Non-Formulary Medication 1 Each (Hydralazine [Apresoline] 100 MG Tablet) PO SCH (04:54)
[2024-09-11 06:45] LABS: BASOPHILS PERCENT AUTO 0.3 % (0.0-1.0); EOSINOPHILS PERCENT AUTO 0.3 % (1.0-3.0); HEMATOCRIT 32.8 % (40.0-54.0); HEMOGLOBIN 10.4 g/dL (14.0-18.0); LYMPHOCYTES PERCENT AUTO 1.3 % (20.5-50.1); MEAN CORPUSCULAR HEMOGLOBIN 33.7 pg (27.0-34.0); MEAN CORPUSCULAR HGB CONC 31.7 g/dL (33.0-35.0); MEAN CORPUSCULAR VOLUME 106.1 fL (80-100); MONOCYTES PERCENT AUTO 4.7 % (2-8); NEUTROPHILS PERCENT AUTO 93.4 % (42.2-75.2); PLATELET COUNT,PLT 264 10^3/uL (150-450); RED BLOOD CELL COUNT 3.09 10^6/uL (4.6-6.2); WHITE BLOOD CELL COUNT,WBC 7.1 10^3/uL (5.0-10.0)
[2024-09-11 07:04] LABS: ALBUMIN 2.8 g/dL (3.4-5.0); ANION GAP 10.6 mEq/L (7-13); BILIRUBIN TOTAL 0.5 mg/dL (0.2-1.0); BUN/CREATININE RATIO 28.2 (No establ ref range); C-REACTIVE PROTEIN 7.57 ng/dL (<=0.50); CALCIUM 8.8 mg/dL (8.5-10.1); CREATININE 1.56 mg/dL (0.70-1.30); EST CRCL DRUG DOSING (CG) 41.91 mL/min; MAGNESIUM 2.2 mg/dL (1.8-2.4); POTASSIUM,K 4.6 mmol/L (3.5-5.1); PROTEIN TOTAL,TP 7.1 g/dL (6.4-8.2)
[2024-09-11 07:14] LABS: A/G RATIO 0.65
[2024-09-11 16:15] VITALS: BP 165/72; PULSE 88
== END 2024-09-11 16:05 | DRG 194 ==
LOC: DL.ED 11:11 → DL.MS 13:44 → DL.ED 14:22
PROVIDERS: ADMIT Internal Medicine; ATTEND Internal Medicine
DX: J18.9 Pneumonia, unspecified organism (principal); C85.90 Non-Hodgkin lymphoma, unspecified, unspecified site; D84.9 Immunodeficiency, unspecified; I13.0 Hypertensive heart and chronic kidney disease with heart failure and stage 1 through stage 4 chronic kidney disease, or unspecified chronic kidney disease; E87.1 Hypo-osmolality and hyponatremia; N17.9 Acute kidney failure, unspecified; Z68.41 Body mass index [BMI] 40.0-44.9, adult; E78.5 Hyperlipidemia, unspecified; I25.10 Atherosclerotic heart disease of native coronary artery without angina pectoris; I50.9 Heart failure, unspecified; E11.22 Type 2 diabetes mellitus with diabetic chronic kidney disease; E03.9 Hypothyroidism, unspecified; N18.30 Chronic kidney disease, stage 3 unspecified; E78.00 Pure hypercholesterolemia, unspecified; H54.7 Unspecified visual loss; M19.90 Unspecified osteoarthritis, unspecified site; F15.90 Other stimulant use, unspecified, uncomplicated; D53.9 Nutritional anemia, unspecified; E87.8 Other disorders of electrolyte and fluid balance, not elsewhere classified; E83.42 Hypomagnesemia; E88.09 Other disorders of plasma-protein metabolism, not elsewhere classified; G47.33 Obstructive sleep apnea (adult) (pediatric); E66.813 Obesity, class 3; D63.1 Anemia in chronic kidney disease; M10.9 Gout, unspecified; Z86.711 Personal history of pulmonary embolism; Z79.60 Long term (current) use of unspecified immunomodulators and immunosuppressants; Z98.890 Other specified postprocedural states; Z98.52 Vasectomy status; Z85.820 Personal history of malignant melanoma of skin; Z90.89 Acquired absence of other organs; Z88.8 Allergy status to other drugs, medicaments and biological substances; Z79.82 Long term (current) use of aspirin; I25.2 Old myocardial infarction; Z79.4 Long term (current) use of insulin; Z99.81 Dependence on supplemental oxygen; Z79.02 Long term (current) use of antithrombotics/antiplatelets; Z79.84 Long term (current) use of oral hypoglycemic drugs; Z79.899 Other long term (current) drug therapy
CPT/HCPCS: 36415; 71045; 71275; 80053; 81001; 82306; 82607; 82746; 82947; 83605; 83735; 83880; 84145; 84439; 84443; 84484; 85025; 85379; 86140; 87040; 87070; 87081; 87205; 87428-QW; 87430; 93005; 93010; 93970; 96365; 99223; 99233; 99238; 99284-25; 99285; A9270-GY; J0295; J0456; J1100; J1644; J1815-GY; J1940; J2470; J2919; J3475; J3490; J7050; J7620-GY; Q9967